=== PATIENT | female | born 1935 | race Caucasian/White ===

== ENCOUNTER 2017-05-02 14:51 | Emergency (ER) | payer MEDICARE, OTHER ==
[~2017-05-02] VITALS: Ht 165.1 cm; Wt 60.0 kg
--- NOTE | 2017-05-02 15:20 | PD ---
HPI Chief Complaint: GI Complaint Time Seen by Provider: 15:06 Travel History International Travel<30 days: No Contact w/Intl Traveler<30days: No Traveled to known affect area: No History of Present Illness HPI PATIENT BROUGHT IN BY FRIEND, APPARENTLY PATIENT WAS VISITING HER AT [place] WHEN SHE SUDDENLY THREW UP, FRIEND STATES THAT THIS ALSO OCCURRED 3 DAYS AGO WHEN SHE WAS SEEN BY [place] [employer] ? PER PT SHE HAS A "LITTLE" DISCOMFORT, "NOT BAD" ON HER LEFT CHEST [facility] Social History Tobacco Use: No Allergies-Medications (Allergen,Severity, Reaction): Coded Allergies: No Known Allergies (Unverified , 05/02/17) Reported Meds & Prescriptions Reported Meds & Active Scripts Active Zofran Odt (Ondansetron Odt) 4 Mg Tab 4 Mg SL Q6HR PRN Ciprofloxacin (Ciprofloxacin HCl) 500 Mg Tab 500 Mg PO BID Review of Systems Except as stated in HPI: all other systems reviewed are Neg Cardiovascular: Positive: Chest Pain or Discomfort Gastrointestinal: Positive: Nausea Physical Exam Narrative GENERAL: SKIN: Warm and dry. HEAD: Atraumatic. Normocephalic. EYES: Pupils equal and round. No scleral icterus. No injection or drainage. ENT: No nasal bleeding or discharge. Mucous membranes pink and moist. NECK: Trachea midline. No JVD. CARDIOVASCULAR: Regular rate and rhythm. RESPIRATORY: No accessory muscle use. Clear to auscultation. Breath sounds equal bilaterally. GASTROINTESTINAL: Abdomen soft, non-tender, nondistended. Hepatic and splenic margins not palpable. MUSCULOSKELETAL: Extremities without clubbing, cyanosis, or edema. No obvious deformities. NEUROLOGICAL: Awake and alert. No obvious cranial nerve deficits. Motor grossly within normal limits. Five out of 5 muscle strength in the arms and legs. Normal speech. PSYCHIATRIC: Appropriate mood and affect; insight and judgment normal. Data Data Last Documented VS Vital Signs Date Time Temp Pulse Resp B/P Pulse Ox O2 Delivery O2 Flow Rate FiO2 05/02/17 19:34 98.2 79 16 173/81 97 05/02/17 18:15 Room Air Orders Complete Blood Count With Diff (05/02/17 15:21) Comprehensive Metabolic Panel (05/02/17 15:21) Lipase (05/02/17 15:21) Prothrombin Time / Inr (Pt) (05/02/17 15:21) Act Partial Throm Time (Ptt) (05/02/17 15:21) Urinalysis - C+S If Indicated (05/02/17 15:21) Iv Access Insert/Monitor (05/02/17 15:21) Ecg Monitoring (05/02/17 15:21) Oximetry (05/02/17 15:21) NPO (05/02/17 15:21) Sodium Chloride 0.9% Flush (Ns Flush) (05/02/17 15:30) Electrocardiogram (05/02/17 15:21) Troponin I (05/02/17 15:21) Chest, Single Ap (05/02/17 15:21) Urine Culture (05/02/17 17:33) Ceftriaxone Inj (Rocephin Inj) (05/02/17 18:00) Sodium Chlor 0.9% 1000 Ml Inj (Ns 1000 M (05/02/17 18:15) Labs Laboratory Tests Test 05/02/17 05/02/17 15:40 17:33 Prothrombin Time 10.8 SEC Prothromb Time International 1.0 RATIO Ratio Activated Partial 24.0 SEC Thromboplast Time Sodium Level 138 MEQ/L Potassium Level 4.2 MEQ/L Chloride Level 99 MEQ/L Carbon Dioxide Level 28.4 MEQ/L Anion Gap 11 MEQ/L Blood Urea Nitrogen 23 MG/DL Creatinine 1.50 MG/DL Estimat Glomerular Filtration 33 ML/MIN Rate Random Glucose 155 MG/DL Calcium Level 9.0 MG/DL Total Bilirubin 0.3 MG/DL Aspartate Amino Transf 17 U/L (AST/SGOT) Alanine Aminotransferase 16 U/L (ALT/SGPT) Alkaline Phosphatase 83 U/L Troponin I LESS THAN 0.02 NG/ML Total Protein 7.2 GM/DL Albumin 3.3 GM/DL Lipase 82 U/L White Blood Count 9.7 TH/MM3 Red Blood Count 4.15 MIL/MM3 Hemoglobin 11.0 GM/DL Hematocrit 34.1 % Mean Corpuscular Volume 82.2 FL Mean Corpuscular Hemoglobin 26.6 PG Mean Corpuscular Hemoglobin 32.3 % Concent Red Cell Distribution Width 13.0 % Platelet Count 305 TH/MM3 Mean Platelet Volume 7.9 FL Neutrophils (%) (Auto) 74.7 % Lymphocytes (%) (Auto) 17.7 % Monocytes (%) (Auto) 4.5 % Eosinophils (%) (Auto) 2.8 % Basophils (%) (Auto) 0.3 % Neutrophils # (Auto) 7.3 TH/MM3 Lymphocytes # (Auto) 1.7 TH/MM3 Monocytes # (Auto) 0.4 TH/MM3 Eosinophils # (Auto) 0.3 TH/MM3 Basophils # (Auto) 0.0 TH/MM3 CBC Comment DIFF FINAL Differential Comment Urine Color YELLOW Urine Turbidity CLOUDY Urine pH 6.0 Urine Specific [place] 1.016 Urine Protein 100 mg/dL Urine Glucose (UA) NEG mg/dL Urine Ketones TRACE mg/dL Urine Occult Blood TRACE Urine Nitrite NEG Urine Bilirubin NEG Urine Leukocyte Esterase SMALL Urine WBC 9-14 /hpf Urine WBC Clumps FEW Urine Squamous Epithelial 0-5 /hpf Cells Urine Bacteria MANY /hpf Microscopic Urinalysis Comment CULTURE INDICATED MDM Medical Decision Making Medical Screen Exam Complete: Yes Emergency Medical Condition: Yes Medical Record Reviewed: Yes Interpretation(s) NSR 78, J POINT ELEV WITHOUT STEMI PATTERN Differential Diagnosis PNA V UTI V ATYPICAL CP V NONSTEMI V PANCREATITIS V HEPATITIS V ELECTROLYTE ABNORMALITY Narrative Course PATIENT FOUND TO HAVE E/O UTI AND PRERENAL AZOTEMIA/DEHYDRATION, WILL ADMIT FOR OBS AND FURTHER EVALUATION INCLUDING R/O ATYPICAL NONSTEMI Diagnosis Primary Impression: UTI Additional Impression: DEHYDRATION Scripts Ondansetron Odt (Zofran Odt)4 Mg Tab4 Mg SL Q6HR PRN (Nausea/Vomiting) #12 TAB Prov:Maxi Venegas MD 05/02/17 Ciprofloxacin 500 Mg [id number] Mg PO BID #14 TAB Prov:Maxi Venegas MD 05/02/17 Disposition: 01 DISCHARGE HOME Condition: Stable Maxi Venegas MD May 02, 2017 15:20
[2017-05-02 15:30] VITALS: BP 190/95; PULSE 84; RESP 18; TEMP 98.3; O2SAT 98
[2017-05-02] MEDS ORDERED: SODIUM CHLORIDE 0.9% FLUSH 10 ML FLUSH IV FLUSH PRN (15:30)
[2017-05-02 15:33] VITALS: RESP 18; O2SAT 98
[2017-05-02 15:55] LABS: AUTOMATED NEUTROPHIL # 7.3 TH/MM3 (1.8-7.7); BASOPHIL % 0.3 % (0.0-2.0); EOSINOPHIL # 0.3 TH/MM3 (0-0.4); EOSINOPHIL % 2.8 % (0.0-4.0); HEMATOCRIT 34.1 % (35.0-46.0); HEMO FLAGS DIFF FINAL; LYMPH % 17.7 % (9.0-44.0); LYMPHOCYTE # 1.7 TH/MM3 (1.0-4.8); MEAN CELL VOLUME 82.2 FL (80.0-100.0); MEAN CORPUSCULAR HEMOGLOBIN 26.6 PG (27.0-34.0); MEAN CORPUSCULAR HGB CONC 32.3 % (32.0-36.0); MONO % 4.5 % (0.0-8.0); NEUT % 74.7 % (16.0-70.0); PLATELET COUNT 305 TH/MM3 (150-450); RED BLOOD COUNT 4.15 MIL/MM3 (4.00-5.30); WHITE BLOOD COUNT 9.7 TH/MM3 (4.0-11.0)
[2017-05-02 16:04] LABS: CHLORIDE 99 MEQ/L (98-107); POTASSIUM 4.2 MEQ/L (3.5-5.1); SODIUM (NA) 138 MEQ/L (136-145)
[2017-05-02 16:08] LABS: ANION GAP 11 MEQ/L (5-15); BICARBONATE 28.4 MEQ/L (21.0-32.0); BLOOD UREA NITROGEN 23 MG/DL (7-18); PROTHROMBIN TIME - PATIENT 10.8 SEC (9.8-11.6)
[2017-05-02 16:11] LABS: ALT (GPT) 16 U/L (10-53); AST (GOT) 17 U/L (15-37); GLOMERULAR FILTRATION RATE 33 ML/MIN (>89)
[2017-05-02 16:12] LABS: TOTAL BILIRUBIN ADULT 0.3 MG/DL (0.2-1.0)
[2017-05-02 16:14] LABS: ALKALINE PHOSPHATASE 83 U/L (45-117)
--- NOTE | 2017-05-02 16:18 | RADRPT ---
EXAM DATE/TIME: 05/02/2017 15:58 [facility] COMPARISON: No previous studies available for comparison. INDICATIONS : Vomiting today. MEDICAL HISTORY : None. SURGICAL HISTORY : None. ENCOUNTER: Initial ACUITY: 1 day PAIN SCORE: 0/10 LOCATION: Abdomen, upper quadrant. FINDINGS: A single view of the chest demonstrates the lungs to be symmetrically aerated without evidence of mas s, infiltrate or effusion. The cardiomediastinal contours are unremarkable. Osseous structures are intact. CONCLUSION: 1. No acute cardiopulmonary disease. Amol Polk MD on May 02, 2017 at 16:16 Board Certified Radiologist. This report was verified electronically.
[2017-05-02 17:44] LABS: BLOOD, URINE TRACE (NEG); GLUCOSE,URINE NEG (NEG); KETONE, URINE TRACE mg/dL (NEG); NITRITE,URINE NEG (NEG)
[2017-05-02 17:52] LABS: URINE COLOR YELLOW (YELLW/STRAW)
[2017-05-02 17:53] LABS: BACTERIA, URINE MANY /hpf; COMMENT (UR) CULTURE INDICATED; CULTURE IF INDICATED CULTURE INDICATED; SQUAMOUS EPITHELIAL CELL URINE 0-5 /hpf (0-5)
[2017-05-02] MEDS ORDERED: cefTRIAXone INJ 1,000 MG in SODIUM CHLORIDE 0.9% INJ 100 ML IV ONE (18:00)
[2017-05-02] MEDS ORDERED: ZOFR4TAB3 SL (18:01)
[2017-05-02] MEDS ORDERED: CIPR500T2 PO (18:01)
[2017-05-02 18:15] VITALS: BP 182/80; PULSE 76; RESP 16; O2SAT 99
[2017-05-02] MEDS ORDERED: SODIUM CHLOR 0.9% 1000 ML INJ 1,000 ML IV ONE (18:15)
[2017-05-02 19:34] VITALS: BP 173/81; TEMP 98.2
--- NOTE | 2017-05-02 22:36 | EKG ---
Date Performed: 05/02/2017 Time Performed: 15:47:34 PTAGE: 81 years EKG: Sinus rhythm NORMAL ECG PREVIOUS TRACING : 01/31/2001 17.40 No significant change from previous tracing noted. DOCTOR: Geoffrey Torres Interpretating Date/Time 05/02/2017 22:35:44
== END 2017-05-02 19:34 | disposition home or self-care (01) ==
LOC: PHED 14:51
DX: N39.0 Urinary tract infection, site not specified (principal); B96.20 Unspecified Escherichia coli [E. coli] as the cause of diseases classified elsewhere; E86.0 Dehydration; R07.9 Chest pain, unspecified
CPT/HCPCS: 71010; 80053; 81001; 83690; 84484; 85025; 85610; 85730; 87077; 87086; 87186; 93005; 96365; 99285; J0696; J7030

== ENCOUNTER 2017-12-11 03:33 | Emergency (ER) | payer OTHER ==
[~2017-12-11] VITALS: Ht 167.6 cm; Wt 85.0 kg
[~2017-12-11 03:33] MED LIST: CIPR500T2 PO; ZOFR4TAB3 SL
--- NOTE | 2017-12-11 03:41 | PD ---
HPI Chief Complaint: Fall Time Seen by Provider: 03:36 Travel History International Travel<30 days: No Contact w/Intl Traveler<30days: No Traveled to known affect area: No History of Present Illness HPI The patient is a 82-year-old female who presents to the emergency department via EMS from [facility] after she apparently fell out of a wheelchair. It was an unwitnessed fall, the patient had been sitting in a wheelchair and was found lying on the ground. Upon arrival the patient is a poor historian with a history of dementia. EMS noted a hematoma to the left frontal forehead, otherwise, no obvious injuries. The patient does not respond to name or commands. History was obtained from EMS and medical records from [facility]. PFSH Past Medical History Diminished Hearing: Yes Social History Alcohol Use: No Tobacco Use: No Substance Use: No Allergies-Medications (Allergen,Severity, Reaction): Coded Allergies: No Known Allergies (Unverified , 05/02/17) Reported Meds & Prescriptions Reported Meds & Active Scripts Active Reported Quetiapine (Quetiapine Fumarate) 25 Mg Tab 25 Mg PO HS Novolin R Inj (Insulin Human Regular) 1,000 Unit/10 Ml Vial 5-25 Units SQ ACHS Max dose at bedtime:( )units; sugars less than 70,(0) units; sugars 150-199,(5)unit; sugars 200-249,(10)units; sugars 250-299,(15) units; sugars 300-349,(20)units; sugars greater than 349,(25)units Nitrofurantoin Macrocrystal 50 Mg Cap 50 Mg PO BID Lorazepam 2 Mg Tab 2 Mg PO Q6H PRN Humalog Inj (Insulin Human Lispro) 1,000 Unit/10 Ml Vial 8 Units SQ DAILY Levemir Inj (Insulin Detemir) 1,000 unit/ 10 ML Vial 20 Units SQ DIRECTED Do not mix with any other Insulin. Amlodipine (Amlodipine Besylate) 5 Mg Tab 5 Mg PO DAILY Review of Systems ROS Limitations: Clinical Condition Except as stated in HPI: all other systems reviewed are Neg HENT: Positive: Other (Hematoma to the forehead according to EMS) Neurologic: Positive: Other (History of dementia) Physical Exam Narrative GENERAL: Awake, alert, pleasant 82-year-old female who appears her stated age and is in no acute respiratory distress. SKIN: Focused skin assessment warm/dry. HEAD: Hematoma to left frontal forehead. EYES: Right pupil is irregular and nonreactive. Left pupil is 2 mm. ENT: No nasal bleeding or discharge. Upper dentures in place. NECK: Trachea midline. No JVD. Cervical collar in place. CARDIOVASCULAR: Regular rate and rhythm. No murmur appreciated. RESPIRATORY: No accessory muscle use. Clear to auscultation. Breath sounds equal bilaterally. GASTROINTESTINAL: Abdomen soft, non-tender, nondistended. No rebound tenderness. MUSCULOSKELETAL: No obvious deformities. No clubbing. No cyanosis. No edema. NEUROLOGICAL: Awake and alert. No obvious cranial nerve deficits. Motor grossly within normal limits. Does not follow commands or answer questions. Moves all 4 extremities. PSYCHIATRIC: Appears to have dementia. Data Data Last Documented VS Vital Signs Date Time Temp Pulse Resp B/P (MAP) Pulse Ox O2 Delivery O2 Flow Rate FiO2 12/11/17 03:56 Room Air 12/11/17 03:54 98.1 85 16 166/74 (104) [address] Brain W/O Iv Contrast(Rout) (12/11/17 ) Ct Cerv Spine W/O Contrast (12/11/17 ) Complete Blood Count With Diff (12/11/17 03:36) Basic Metabolic Panel (Bmp) (12/11/17 03:36) Act Partial Throm Time (Ptt) (12/11/17 03:36) Prothrombin Time / Inr (Pt) (12/11/17 03:36) Labs Laboratory Tests Test 12/11/17 03:40 White Blood Count 6.9 TH/MM3 Red Blood Count 3.22 MIL/MM3 Hemoglobin 9.2 GM/DL Hematocrit 27.3 % Mean Corpuscular Volume 85.0 FL Mean Corpuscular Hemoglobin 28.5 PG Mean Corpuscular Hemoglobin Concent 33.6 % Red Cell Distribution Width 15.6 % Platelet Count 255 TH/MM3 Mean Platelet Volume 7.9 FL Neutrophils (%) (Auto) 56.1 % Lymphocytes (%) (Auto) 27.6 % Monocytes (%) (Auto) 9.9 % Eosinophils (%) (Auto) 5.7 % Basophils (%) (Auto) 0.7 % Neutrophils # (Auto) 3.9 TH/MM3 Lymphocytes # (Auto) 1.9 TH/MM3 Monocytes # (Auto) 0.7 TH/MM3 Eosinophils # (Auto) 0.4 TH/MM3 Basophils # (Auto) 0.1 TH/MM3 CBC Comment DIFF FINAL Differential Comment Prothrombin Time 10.5 SEC Prothromb Time International Ratio 1.0 RATIO Activated Partial Thromboplast Time 22.5 SEC Blood Urea Nitrogen 31 MG/DL Creatinine 1.48 MG/DL Random Glucose 175 MG/DL Calcium Level 8.3 MG/DL Sodium Level 141 MEQ/L Potassium Level 4.2 MEQ/L Chloride Level 107 MEQ/L Carbon Dioxide Level 28.4 MEQ/L Anion Gap 6 MEQ/L Estimat Glomerular Filtration Rate 34 ML/MIN [facility] Medical Decision Making Medical Screen Exam Complete: Yes Emergency Medical Condition: Yes Medical Record Reviewed: Yes Interpretation(s) CT of the head reveals soft tissue swelling with no acute fracture or hemorrhage. CT of the cervical spine reveals negative trauma CT Laboratory Tests Test 12/11/17 03:40 White Blood Count 6.9 TH/MM3 Red Blood Count 3.22 MIL/MM3 Hemoglobin 9.2 GM/DL Hematocrit 27.3 % Mean Corpuscular Volume 85.0 FL Mean Corpuscular Hemoglobin 28.5 PG Mean Corpuscular Hemoglobin Concent 33.6 % Red Cell Distribution Width 15.6 % Platelet Count 255 TH/MM3 Mean Platelet Volume 7.9 FL Neutrophils (%) (Auto) 56.1 % Lymphocytes (%) (Auto) 27.6 % Monocytes (%) (Auto) 9.9 % Eosinophils (%) (Auto) 5.7 % Basophils (%) (Auto) 0.7 % Neutrophils # (Auto) 3.9 TH/MM3 Lymphocytes # (Auto) 1.9 TH/MM3 Monocytes # (Auto) 0.7 TH/MM3 Eosinophils # (Auto) 0.4 TH/MM3 Basophils # (Auto) 0.1 TH/MM3 CBC Comment DIFF FINAL Differential Comment Prothrombin Time 10.5 SEC Prothromb Time International Ratio 1.0 RATIO Activated Partial Thromboplast Time 22.5 SEC Blood Urea Nitrogen 31 MG/DL Creatinine 1.48 MG/DL Random Glucose 175 MG/DL Calcium Level 8.3 MG/DL Sodium Level 141 MEQ/L Potassium Level 4.2 MEQ/L Chloride Level 107 MEQ/L Carbon Dioxide Level 28.4 MEQ/L Anion Gap 6 MEQ/L Estimat Glomerular Filtration Rate 34 ML/MIN Differential Diagnosis Differential diagnosis includes mechanical fall, closed head injury, intracranial hemorrhage, cervical fracture, skull fracture, hyponatremia, coagulopathy, hematoma, contusion. Narrative Course IV was established, labs are drawn and sent, and the patient was placed on cardiac telemetry monitoring and continuous pulse oximetry monitoring. CT of the brain and cervical spine were obtained. CBC, BMP, coags were sent to lab. Ice was applied to the hematoma. CT of the brain and cervical spine are unremarkable. CBC reveals mild anemia with a hemoglobin of 9.1. Creatinine is mildly elevated at 1.48. Sodium level is normal. Patient stable for transfer back to the correction. Diagnosis Primary Impression: Closed head injury Qualified Codes: S09.90XA - Unspecified injury of head, initial encounter Additional Impression: Hematoma Patient Instructions: General Instructions Additional Instructions: Transfer the patient back to the correction. Please provide the patient a copy of her CT results and lab results at discharge. Follow-up with your primary physician. Return if symptoms worsen or progress. Disposition: 03 DISCHARGE TO SNF (Transfer back to correction) Condition: Stable Harpreet Gray MD Dec 11, 2017 03:41
[2017-12-11 03:54] VITALS: BP 166/74; PULSE 85; RESP 16; TEMP 98.1; O2SAT 96
[2017-12-11] MEDS ORDERED: NOVORP2 SQ (04:08)
[2017-12-11] MEDS ORDERED: NITR1CAP37 PO (04:08)
[2017-12-11] MEDS ORDERED: AMLO5TAB2 PO (04:08)
[2017-12-11] MEDS ORDERED: LEVEMIR SQ (04:08)
[2017-12-11] MEDS ORDERED: HUMALOG SQ (04:08)
[2017-12-11] MEDS ORDERED: LORA2TAB7 PO (04:08)
[2017-12-11] MEDS ORDERED: QUET1TAB7 PO (04:08)
[2017-12-11 04:10] LABS: AUTOMATED NEUTROPHIL # 3.9 TH/MM3 (1.8-7.7); BASOPHIL # 0.1 TH/MM3 (0-0.2); BASOPHIL % 0.7 % (0.0-2.0); EOSINOPHIL # 0.4 TH/MM3 (0-0.4); EOSINOPHIL % 5.7 % (0.0-4.0); HEMATOCRIT 27.3 % (35.0-46.0); HEMOGLOBIN 9.2 GM/DL (11.6-15.3); LYMPH % 27.6 % (9.0-44.0); LYMPHOCYTE # 1.9 TH/MM3 (1.0-4.8); MEAN CORPUSCULAR HEMOGLOBIN 28.5 PG (27.0-34.0); MEAN CORPUSCULAR HGB CONC 33.6 % (32.0-36.0); MEAN PLATELET VOLUME 7.9 FL (7.0-11.0); MONO % 9.9 % (0.0-8.0); MONOCYTE # 0.7 TH/MM3 (0-0.9); NEUT % 56.1 % (16.0-70.0); PLATELET COUNT 255 TH/MM3 (150-450); RED BLOOD COUNT 3.22 MIL/MM3 (4.00-5.30); RED CELL DISTRIBUTION WIDTH 15.6 % (11.6-17.2); WHITE BLOOD COUNT 6.9 TH/MM3 (4.0-11.0)
[2017-12-11 04:21] LABS: BICARBONATE 28.4 MEQ/L (21.0-32.0); CALCIUM 8.3 MG/DL (8.5-10.1); CREATININE 1.48 MG/DL (0.50-1.00)
--- NOTE | 2017-12-11 04:21 | RADRPT ---
EXAM DATE/TIME: 12/11/2017 04:00 [facility] COMPARISON: No previous studies available for comparison. INDICATIONS : Trauma. Fall. RADIATION DOSE: 69.15 CTDIvol (mGy) MEDICAL HISTORY : None SURGICAL HISTORY : None. ENCOUNTER: Initial ACUITY: 1 day PAIN SCALE: 5/10 LOCATION: cranial TECHNIQUE: Multiple contiguous axial images were obtained of the head. Using automated exposure control and adj ustment of the mA and/or kV according to patient size, radiation dose was kept as low as reasonably a chievable to obtain optimal diagnostic quality images. DICOM format image data is available electro nically for review and comparison. FINDINGS: There is marked central and cortical atrophy with dilatation of ventricular and sulcal spaces. There is no parenchymal hemorrhage, acute infarction or mass lesion identified. There are no extra-a xial fluid collections appreciated. The posterior fossa is unremarkable with midline fourth ventricl e. The portion of the orbits and paranasal sinuses visualized are unremarkable. There is soft tissue swelling along the outer left frontal bone. CONCLUSION: Soft tissue swelling with no acute fracture or hemorrhage. Celestino Mendez MD on December 11, 2017 at 4:17 Board Certified Radiologist. This report was verified electronically.
--- NOTE | 2017-12-11 04:22 | RADRPT ---
EXAM DATE/TIME: 12/11/2017 04:02 [facility] COMPARISON: No previous studies available for comparison. INDICATIONS : Trauma. Fall. RADIATION DOSE: 26.64 CTDIvol (mGy) MEDICAL HISTORY : None SURGICAL HISTORY : None. ENCOUNTER: Initial ACUITY: 1 day PAIN SCALE: 5/10 LOCATION: neck TECHNIQUE: Volumetric scanning of the cervical spine was performed. Multiplanar reconstructions i n the sagittal, coronal and oblique axial planes were performed. Using automated exposure control a nd adjustment of the mA and/or kV according to patient size, radiation dose was kept as low as reason ably achievable to obtain optimal diagnostic quality images. DICOM format image data is available e lectronically for review and comparison. FINDINGS: The sagittal reconstructions demonstrate normal alignment and normal prevertebral soft tissues. The d ens is intact and there is a normal atlantoaxial relationship. The axial images demonstrate that the vertebral bodies and posterior elements are intact. The soft ti ssues are within normal limits. There is no evidence of acute fracture or malalignment. CONCLUSION: Negative trauma CT. Celestino Mendez MD on December 11, 2017 at 4:19 Board Certified Radiologist. This report was verified electronically.
[2017-12-11 04:24] LABS: PROTHROMBIN TIME - PATIENT 10.5 SEC (9.8-11.6)
[2017-12-11] MEDS ORDERED: LORazepam 2 MG/ML VIAL IV PUSH ONE (04:45)
== END 2017-12-11 05:59 ==
LOC: NEPC 03:33
DX: S00.83XA Contusion of other part of head, initial encounter (principal); F03.90 Unspecified dementia, unspecified severity, without behavioral disturbance, psychotic disturbance, mood disturbance, and anxiety; W05.0XXA Fall from non-moving wheelchair, initial encounter; Y92.129 Unspecified place in nursing home as the place of occurrence of the external cause
CPT/HCPCS: 70450; 72125; 80048; 85025; 85610; 85730; 96374; 99284; J2060